=== PATIENT | female | born 1940 | race American Indian/Alaskan Native ===

== ENCOUNTER 2017-05-19 13:42 | Outpatient (CLI) | payer MEDICARE ==
[2017-05-19 14:25] LABS: INR 2.23 (0.87-1.13)
== END 2017-05-19 13:43 | disposition home or self-care (01) ==
LOC: LAB 13:42
DX: Z00.00 Encounter for general adult medical examination without abnormal findings (principal); Z79.01 Long term (current) use of anticoagulants
CPT/HCPCS: 36415; 85610